=== PATIENT | male | born 1955 ===

== ENCOUNTER 2018-10-19 05:00 | Day surgery (SDC) | payer OTHER ==
[~2018-10-19 05:00] MED LIST: ALDACTAZIDE 251 EACH PO; CRESTOR5 MG PO; EXFORGE 10-3201 EACH PO; KOMBIGLYZE XR1 EAC2 PO; MINOXIDIL2.5 MG PO; TOPROL XL50 M1 PO; ZESTRIL5 MG PO
[2018-10-19] MEDS ORDERED: NEURONTIN300 MG PO (10:14)
[2018-10-19] MEDS ORDERED: PERCOCET 5-3251 EACH PO (10:14)
[2018-10-19] MEDS ORDERED: POLY119PG PO (10:15)
== END 2018-10-19 13:00 | disposition home or self-care (01) ==
LOC: CIR.AMB 05:00
DX: K40.20 Bilateral inguinal hernia, without obstruction or gangrene, not specified as recurrent (principal)

== ENCOUNTER 2018-10-30 15:23 | Emergency (ER) | payer OTHER ==
[~2018-10-30] VITALS: Ht 177.8 cm; Wt 106.6 kg
[~2018-10-30 15:23] MED LIST changes: +NEURONTIN300 MG PO; +PERCOCET 5-3251 EACH PO; +POLY119PG PO
== END 2018-10-30 17:54 | disposition home or self-care (01) ==
LOC: ER 15:23
DX: R10.32 Left lower quadrant pain (principal); Z98.890 Other specified postprocedural states

== ENCOUNTER 2021-07-10 06:47 | Inpatient (IN) | payer OTHER ==
[~2021-07-10] VITALS: Ht 180.3 cm; Wt 103.4 kg
[2021-07-10] MEDS ORDERED: TOPROL XL100 M1 PO (07:48)
[2021-07-10] MEDS ORDERED: KOMBIGLYZE XR1 EAC2 PO (07:49)
[2021-07-10] MEDS ORDERED: ELIQUIS PO (07:50)
[2021-07-15] MEDS ORDERED: ELIQUIS5 MG (09:25)
[2021-07-15] MEDS ORDERED: SPIRONOLACTONE25 MG (09:25)
== END 2021-07-18 19:08 | DRG 470 ==
LOC: O/R 07-15 04:45 → SURG 07-15 04:45 → SURH 07-15 07:04 → SURG 07-15 13:18 → SURH 07-15 15:15 → O/R 07-15 20:24 → SURH 07-15 20:26
PROVIDERS: ADMIT Orthopaedic Surgery; ATTEND Orthopaedic Surgery
PROC: 0SRC0J9 Replacement of Right Knee Joint with Synthetic Substitute, Cemented, Open Approach (ICD-10-PCS; principal; 2021-07-15 15:15)
PROC: 4A12X4Z Monitoring of Cardiac Electrical Activity, External Approach (ICD-10-PCS; 2021-07-16)
DX: M17.11 Unilateral primary osteoarthritis, right knee (principal); I48.20 Chronic atrial fibrillation, unspecified; D62 Acute posthemorrhagic anemia; Z79.01 Long term (current) use of anticoagulants

== ENCOUNTER 2023-02-02 08:20 | Outpatient (CLI) | payer OTHER ==
[~2023-02-02 08:20] MED LIST changes: +ELIQUIS PO; +ELIQUIS5 MG; +SPIRONOLACTONE25 MG; +TOPROL XL100 M1 PO
== END 2023-02-02 08:25 | disposition home or self-care (01) ==
LOC: SONOGRAMA 08:20
PROVIDERS: ATTEND Internal Medicine Endocrinology, Diabetes & Metabolism
DX: K80.80 Other cholelithiasis without obstruction (principal); N20.0 Calculus of kidney

== ENCOUNTER 2023-02-04 12:03 | Outpatient (CLI) | payer OTHER | END 2023-02-04 12:10 | disposition home or self-care (01) | LOC: MRI 12:03 | PROVIDERS: ATTEND Orthopaedic Surgery | DX: S83.201A Bucket-handle tear of unspecified meniscus, current injury, left knee, initial encounter (principal) | CPT/HCPCS: 73721 ==

== ENCOUNTER 2025-04-10 11:51 | Outpatient (CLI) | payer OTHER | END 2025-04-10 11:52 | disposition home or self-care (01) | LOC: RAD 11:51 | PROVIDERS: ATTEND Internal Medicine | DX: M25.561 Pain in right knee (principal); M25.562 Pain in left knee ==

== ENCOUNTER 2025-05-01 13:54 | Outpatient (CLI) | payer OTHER | END 2025-05-01 14:02 | disposition home or self-care (01) | LOC: MRI 13:54 | PROVIDERS: ATTEND Internal Medicine | DX: M25.562 Pain in left knee (principal) | CPT/HCPCS: 73721 ==

== ENCOUNTER 2025-06-01 08:15 | Inpatient (IN) | payer OTHER ==
[~2025-06-01] VITALS: Ht 177.8 cm; Wt 100.2 kg
[2025-06-01 11:24] LABS: BASO % 0.4 % (0.1-1.2); EOS # 0.22 (0.04-0.54); EOS % 3.2 % (0.7-7.0); LYMPH # 2.56 (1.18-3.74); LYMPH % 37.0 % (19.3-53.1); MEAN PLATELET VOLUME 10.90 fl (9.4-12.4); MONO # 0.67 (0.24-0.82); MONO % 9.7 % (4.7-12.5); NEUT # 3.42 (1.56-6.13); NEUT % 49.4 % (34.0-71.1); RED CELL DISTRIBUTION WIDTH 13.7 % (11.6-14.4)
[2025-06-01 11:26] LABS: URINE APPEARANCE Clear; URINE BILIRRUBIN Negative (NEGATIVE); URINE BLOOD Negative; URINE COLOR Yellow; URINE KETONE Trace (NEGATIVE); URINE LEUKOCYTE Negative; URINE NITRATE Negative; URINE PROTEIN Trace (NEGATIVE); URINE UROBILINOGEN 1.0 E.U./dl
[2025-06-01 11:31] LABS: URINE BACTERIA 31.1 uL (0.0-1933); URINE EPITHELIAL CELLS 18.4 uL (0.0-38.8); URINE RBC 5.7 uL (0.0-20.8); URINE WBC 5.3 uL (0.0-23.2)
[2025-06-01 12:06] LABS: INR 1.14
[2025-06-01 12:07] LABS: URINE CAST 0.43 uL (0.0-1.40); URINE GLUCOSE >=1000 MG/DL (NEGATIVE)
[2025-06-01 12:19] LABS: ALT/SGPT 25.0 U/L (12-78); AST/SGOT 21.0 U/L (15-37); BILIRUBIN TOTAL 0.6 mg/dL (0.3-1.2); BUN CREA RATIO 23.0 (7.0-25.0); CREATININE SERUM 1.05 mg/dL (0.70-1.30); GFR 70.45; GLOBULINA 3.7 G/DL (2.4-3.5); GLUCOSE FASTING 118.0 mg/dL (65-100); OSMOLALITY SERUM 283.0 MOSM/KG (275-295)
[2025-06-01 16:20] VITALS: BP 113/80
[2025-06-05] MEDS ORDERED: CEFAZOLIN SODIUM 1,000 MG VIAL ONE ×2 (09:27→09:47)
[2025-06-05] MEDS ORDERED: KETOROLAC TROMETHAMINE 60 MG VIAL IM ONE (09:27)
[2025-06-05] MEDS ORDERED: TRANEXAMIC ACID 100MG/1ML (1000MG) AMPUL ONE (09:27)
[2025-06-05] MEDS ORDERED: MORPHINE SULFATE 4 MG/ML CARTRIDGE IV SCH (11:00)
[2025-06-05] MEDS ORDERED: OxyCODONE HCL 5 MG TABLET (ROXICODONE) PO SCH (11:00)
[2025-06-05] MEDS ORDERED: CEFAZOLIN SODIUM 1,000 MG VIAL IV SCH (11:00)
[2025-06-05] MEDS ORDERED: hydrALAZINE HCL 20 MG VIAL IV PRN (15:15)
[2025-06-05] MEDS ORDERED: DEXTROSE 50 % IN WATER 0.5 G/ML VIAL IV PRN (15:15)
[2025-06-05] MEDS ORDERED: INSULIN LISPRO 1,000 UNIT/10 ML UNITS SUBCUTANEO PRN (15:15)
[2025-06-05] MEDS ORDERED: METOPROLOL TARTRATE 100 MG TABLET PO SCH (17:00)
[2025-06-05] MEDS ORDERED: ROSUVASTATIN CALCIUM 20 MG TABLET PO SCH (17:00)
[2025-06-05] MEDS ORDERED: MINOXIDIL 10 MG TABLET PO SCH (17:00)
[2025-06-05 17:40] VITALS: BP 124/87; O2SAT 96
[2025-06-05 20:46] VITALS: O2SAT 94
[2025-06-05] MEDS ORDERED: ORPHENADRINE CITRATE 100 MG TABLET PO SCH (21:00)
[2025-06-05] MEDS ORDERED: GABAPENTIN 100 MG CAPSULE PO SCH (21:00)
[2025-06-06] VITALS (8 sets, daily range): BP systolic 111–132; BP diastolic 74–84; O2SAT 90–100
[2025-06-06] MEDS ORDERED: RIVAROXABAN 10 MG TAB PO SCH (09:00)
[2025-06-06] MEDS ORDERED: PATIENTS OWN MEDICATION (MEDICAMENTO EN PISO) PO SCH (09:00)
[2025-06-06] MEDS ORDERED: METOPROLOL TARTRATE 100 MG TABLET PO SCH (09:00)
[2025-06-06] MEDS ORDERED: 0.9 % SODIUM CHLORIDE 1,000 ML IV PUSH SCH (11:00)
[2025-06-06] MEDS ORDERED: Cyanocobalamin/Mecobalamin 1 TAB.SL SL SCH (12:00)
[2025-06-06] MEDS ORDERED: IRON FUM,PS/FOLIC ACID/VITC/B3 1 CAP CAPSULE PO SCH (12:00)
[2025-06-06 12:51] LABS: BUN CREA RATIO 21.0 (7.0-25.0); CREATININE SERUM 1.03 mg/dL (0.70-1.30); GFR 72.03; GLUCOSE FASTING 181.0 mg/dL (65-100); OSMOLALITY SERUM 284.0 MOSM/KG (275-295)
[2025-06-06 13:01] LABS: COVID-19 AG NEGATIVE (NEGATIVE)
[2025-06-06] MEDS ORDERED: APIXABAN 5 MG TABLET PO SCH (17:00)
[2025-06-06 17:02] LABS: BASO % 0.2 % (0.1-1.2); EOS # 0.07 (0.04-0.54); EOS % 0.9 % (0.7-7.0); LYMPH # 0.65 (1.18-3.74); LYMPH % 8.0 % (19.3-53.1); MEAN PLATELET VOLUME 11.20 fl (9.4-12.4); MONO # 0.83 (0.24-0.82); MONO % 10.2 % (4.7-12.5); NEUT # 6.51 (1.56-6.13); NEUT % 80.2 % (34.0-71.1); RED CELL DISTRIBUTION WIDTH 13.3 % (11.6-14.4)
[2025-06-07 00:37] VITALS: O2SAT 100
[2025-06-07 01:16] VITALS: BP 114/78; O2SAT 98
[2025-06-07 09:04] VITALS: BP 128/90; O2SAT 98
[2025-06-07 09:43] VITALS: O2SAT 96
[2025-06-07] MEDS ORDERED: NORFLEX100MG PO (11:30)
[2025-06-07] MEDS ORDERED: GABAPENTIN100 MG PO (11:31)
[2025-06-07] MEDS ORDERED: ELIQUIS5 MG PO (11:31)
[2025-06-07] MEDS ORDERED: PERCOCET 5-3251 EACH PO (11:32)
[2025-06-07] MEDS ORDERED: OxyCODONE HCL 5 MG TABLET (ROXICODONE) PO SCH (12:00)
[2025-06-07 12:30] VITALS: O2SAT 90
== END 2025-06-07 15:14 | DRG 470 ==
LOC: SURH 06-05 08:15 → OB/GYN 06-05 11:00 → SURG 06-05 13:15
PROVIDERS: Internal Medicine Hematology & Oncology; ADMIT Orthopaedic Surgery; ATTEND Orthopaedic Surgery
PROC: 0SRD0JZ Replacement of Left Knee Joint with Synthetic Substitute, Open Approach (ICD-10-PCS; principal; 2025-06-05)
PROC: 0QUF0KZ Supplement Left Patella with Nonautologous Tissue Substitute, Open Approach (ICD-10-PCS; 2025-06-05)
PROC: 4A12X4Z Monitoring of Cardiac Electrical Activity, External Approach (ICD-10-PCS; 2025-06-05)
DX: M17.12 Unilateral primary osteoarthritis, left knee (principal); I48.20 Chronic atrial fibrillation, unspecified; M85.662 Other cyst of bone, left lower leg; I10 Essential (primary) hypertension; E11.9 Type 2 diabetes mellitus without complications; Z79.01 Long term (current) use of anticoagulants; Z79.84 Long term (current) use of oral hypoglycemic drugs